=== PATIENT | female | born 1990 | race Caucasian/White ===

== ENCOUNTER 2020-09-07 13:13 | Inpatient (IN) | payer OTHER, MEDICAID, SELFPAY ==
[~2020-09-07] VITALS: Ht 154.9 cm; Wt 81.2 kg
[2020-09-07] MEDS ORDERED: CARBOPROST 250 MCG/ML AMP IM PRN (13:20)
[2020-09-07] MEDS ORDERED: OXYTOCIN 20 UNITS in LACTATED RINGERS 1,000 ML IV SCH (13:20)
[2020-09-07] MEDS ORDERED: PROMETHAZINE 25 MG/ML VIAL IVP PRN (13:20)
[2020-09-07] MEDS ORDERED: METHYLERGONOVINE 0.2 MG/ML AMP IM PRN (13:20)
[2020-09-07] MEDS: LACTATED RINGERS 1,000 ML IV SCH ×2 (13:25→21:20)
[2020-09-07] MEDS ORDERED: FERR325E14 PO (13:34)
[2020-09-07 13:53] LABS: BASOPHILS # (AUTO) 0.1 K/uL (0.00-0.22); BASOPHILS % (AUTO) 0.9 % (0.0-2.0); EOSINOPHILS # (AUTO) 0.1 K/uL (0-0.4); HEMATOCRIT 34.6 % (36-48); HEMOGLOBIN 11.2 g/dL (12.0-16.0); LYMPHOCYTES # (AUTO) 1.6 K/uL (2.5-16.5); MEAN CORPUSCULAR HEMOGLOBIN 26 pg (27-31); MEAN CORPUSCULAR HGB CONC 32 g/dL (33-37); MEAN CORPUSCULAR VOLUME 79.3 fL (80-94); MONOCYTES # (AUTO) 0.6 K/uL (0.8-1.0); MONOCYTES % (AUTO) 7.6 % (1.7-9.3); NEUTROPHILS # (AUTO) 5.5 K/uL (1.8-7.7); NEUTROPHILS % (AUTO) 70.5 % (42.2-75.2); PLATELET COUNT (AUTO) 247 K/uL (140-450); RED BLOOD CELL COUNT(AUTO) 4.37 MIL/uL (4.20-5.40); RED CELL DISTRIBUTION WIDTH 15.1 % (11.6-13.7); WHITE BLOOD COUNT (AUTO) 7.8 K/uL (4.8-10.8)
[2020-09-07 14:00] LABS: BILIRUBIN,URINE NEGATIVE (NEGATIVE); BLOOD, URINE NEGATIVE (NEGATIVE); COLOR,URINE YELLOW (YELLOW); LEUKOCYTE ESTERASE ,URINE 1+ (NEGATIVE); NITRITE, URINE NEGATIVE (NEGATIVE); UGLUCOSE NEGATIVE (NEGATIVE)
[2020-09-07 14:10] LABS: BARBITURATE, URINE NEGATIVE ng/ml (NEG <=200); BENZODIAZEPINE, URINE NEGATIVE ng/mL (NEG <=200); CANNABINOID, URINE NEGATIVE ng/mL (NEG <=50); COCAINE, URINE NEGATIVE ng/mL (NEG <=300); OPIATE, URINE NEGATIVE ng/mL (NEG <=2000); PHENCYCLIDINE SCREEN,URINE NEGATIVE ng/mL (NEG <=25)
[2020-09-07 14:13] LABS: ALBUMIN 3.1 g/dL (3.4-5.0); ANION GAP 14.3 (8-16); CARBON DIOXIDE 23.8 mmol/L (21-32); CREATININE 0.8 mg/dL (0.6-1.3); POTASSIUM 4.1 mmol/L (3.5-5.1); TOTAL BILIRUBIN 0.3 mg/dL (0.0-1.0)
[2020-09-07 14:45] VITALS: BP 120/75
[2020-09-07 17:39] LABS: APPEARANCE,URINE HAZY (CLEAR)
[2020-09-07 20:44] LABS: RBC,URINE NONE SEEN /HPF (0-5); WBC,URINE 0-5 /HPF (0-5)
[2020-09-08] MEDS ORDERED: MORPHINE SULFATE 5 MG/ML VIAL IVP PRN (00:30)
[2020-09-08] MEDS ORDERED: OXYTOCIN 20 UNITS/LR PREMIX 1,000 ML IV ONE ×2 (00:45→17:00)
[2020-09-08] MEDS ORDERED: MORPHINE SULFATE 10 MG/ML VIAL ONE ×2 (05:55→14:20)
[2020-09-08] MEDS: ONDANSETRON 4 MG/2 ML VIAL IVP PRN ×2 (06:17→14:27)
[2020-09-08] MEDS: LACTATED RINGERS 1,000 ML IV SCH (07:44)
--- NOTE | 2020-09-08 10:08 | NUR ---
PATIENT HAS BEEN SCREENED AND CATEGORIZED LOW NUTRITION RISK. PATIENT WILL BE SEEN WITHIN 7 DAYS OF ADMISSION. 09/13/[address]
[2020-09-08 14:27] VITALS: BP 127/78
[2020-09-08] MEDS ORDERED: BENZOCAINE/MENTHOL 20%-0.5% 60 GM CAN TP PRN (15:30)
[2020-09-08] MEDS ORDERED: bisacodyL 5 MG TABEC PO PRN (15:30)
[2020-09-08] MEDS ORDERED: DOCUSATE SODIUM 100 MG GELCAP PO PRN (15:30)
[2020-09-08] MEDS ORDERED: METHYLERGONOVINE 0.2 MG TAB PO PRN (15:30)
[2020-09-08] MEDS ORDERED: IBUPROFEN 600 MG TAB PO PRN (15:30)
[2020-09-08] MEDS ORDERED: METHYLERGONOVINE 0.2 MG/ML AMP IM PRN (15:30)
[2020-09-08] MEDS ORDERED: SIMETHICONE 80 MG TAB.CHEW PO PRN (15:30)
[2020-09-08] MEDS ORDERED: OXYTOCIN 10 UNITS/ML VIAL IM PRN (15:30)
[2020-09-08] MEDS ORDERED: MEASLES, MUMPS, AND RUBELLA 1 VIAL SQVAC PRN (15:30)
[2020-09-08] MEDS ORDERED: IBUPROFEN 800 MG TAB PO PRN (15:30)
[2020-09-08] MEDS ORDERED: KETOROLAC 30 MG/ML VIAL IVP PRN (19:20)
[2020-09-09 08:16] LABS: HEMATOCRIT 29.2 % (36-48); HEMOGLOBIN 9.7 g/dL (12.0-16.0)
== END 2020-09-09 15:30 | disposition home or self-care (01) | DRG 807 ==
LOC: MLD 13:13 → OBSVTOIN 13:13 → MFCC 09-08 19:55
PROVIDERS: ADMIT Obstetrics & Gynecology; ATTEND Obstetrics & Gynecology
PROC: 10E0XZZ Delivery of Products of Conception, External Approach (ICD-10-PCS; principal; 2020-09-08)
PROC: 10907ZC Drainage of Amniotic Fluid, Therapeutic from Products of Conception, Via Natural or Artificial Opening (ICD-10-PCS; 2020-09-08)
PROC: 3E0R3BZ Introduction of Anesthetic Agent into Spinal Canal, Percutaneous Approach (ICD-10-PCS; 2020-09-08)
PROC: 00HU33Z Insertion of Infusion Device into Spinal Canal, Percutaneous Approach (ICD-10-PCS; 2020-09-08)
PROC: 3E0234Z Introduction of Serum, Toxoid and Vaccine into Muscle, Percutaneous Approach (ICD-10-PCS; 2020-09-08)
PROC: 3E0134Z Introduction of Serum, Toxoid and Vaccine into Subcutaneous Tissue, Percutaneous Approach (ICD-10-PCS; 2020-09-08)
DX: O24.420 Gestational diabetes mellitus in childbirth, diet controlled (principal); Z37.0 Single live birth; Z90.49 Acquired absence of other specified parts of digestive tract; Z3A.37 37 weeks gestation of pregnancy; Z23 Encounter for immunization; Z20.828 Contact with and (suspected) exposure to other viral communicable diseases
CPT/HCPCS: 36415; 59409; 71046; 80053; 80305; 81001; 85018; 85025; 86592; 86762; 86886; 86900; 86901; 87086; 87340; 87653-90; 93005; J1885; J2270; J2405; J2590; J7120; Q0092